=== PATIENT | female | born 1985 | race Caucasian/White ===

== ENCOUNTER → 2017-02-09 | Outpatient (CLI) | payer MEDICAID ==
[2017-02-09 10:58] LABS: COLLECTION METHOD CLEAN CATCH
[2017-02-09 11:01] LABS: BASO # 0.1 (0.0-0.2); BASO % 0.8 % (0.0-2.0); EOS # 0.5 (0.0-0.7); EOS % 5.8 % (0-4.0); GRAN # 5.1 (1.4-6.5); GRAN % 57.1 % (42.2-75.2); LYMPH # 2.7 (1.2-3.4); LYMPH % 30.3 % (20.0-51.0); MEAN CELL VOLUME 97 fl (80.0-100.0); MEAN CORPUSCULAR HGB CONC 33 g/dl (33.0-37.0); MONO # 0.5 (0.1-0.6); MONO % 5.3 % (1.7-9.3); PLATELET COUNT 270 K/mm3 (130-400); RED BLOOD COUNT 3.67 M/mm3 (4.10-5.30); WHITE BLOOD COUNT 8.9 K/mm3 (4.8-10.8)
[2017-02-09 11:03] LABS: HEMATOCRIT 35.4 % (37.0-47.0); HEMOGLOBIN 11.6 g/dl (12.5-16.0); MEAN CORPUSCULAR HEMOGLOBIN 32 pg (27.0-31.0)
[2017-02-09 11:05] LABS: MUCOUS Present /lpf; PH 7 (5-8); SQUAMOUS EPITHELIAL 0-2 /hpf; URINE APPEARANCE Clear; URINE BACTERIA None Seen /hpf; URINE BILIRUBIN Negative (NEGATIVE); URINE BLOOD Negative (NEGATIVE); URINE COLOR Yellow; URINE GLUCOSE Negative (NEGATIVE); URINE KETONE Negative (NEGATIVE); URINE LEUKOCYTE ESTERASE Negative (NEGATIVE); URINE PROTEIN(semi-quant) Negative (NEGATIVE); URINE RBC None Seen /hpf; URINE UROBILINOGEN Negative (NEGATIVE); URINE WBC 0-2 /hpf
[2017-02-09 11:17] LABS: ADJUSTED CALCIUM 9.2 mg/dL (8.4-10.2); ALANINE AMINOTRANSFERASE 74 U/L (9-52); ALBUMIN 5.4 gm/dL (3.5-5.0); ALKALINE PHOSPHATASE 50 U/L (50-136); ANION GAP 10 mmol/L (7-16); BILIRUBIN,TOTAL 0.4 mg/dL (0.0-1.0); BLOOD UREA NITROGEN 13 mg/dL (7-17); CALCIUM 10.3 mg/dL (8.4-10.2); CARBON DIOXIDE 29 mmol/L (22-30); CHLORIDE 102 mmol/L (98-107); CREATININE, serum 1.09 mg/dL (0.52-1.25); GLUCOSE 92 mg/dL (74-106); HDL CHOLESTEROL 71 mg/dL; POTASSIUM 4.2 mmol/L (3.4-5.0); SODIUM 141 mmol/L (137-145); TOTAL PROTEIN 8.9 gm/dL (6.4-8.2); TRIGLYCERIDE 235 mg/dL
[2017-02-09 11:23] LABS: CHOLESTEROL 369 mg/dL (120-200); CHOLESTEROL RISK RATIO 5.1; LDL CHOLESTEROL 251 mg/dL
== END ==
LOC: COL.LAB 09:47
PROVIDERS: Registered Nurse
DX: Z13.228 Encounter for screening for other metabolic disorders (principal); R20.9 Unspecified disturbances of skin sensation

== ENCOUNTER → 2017-03-02 | Outpatient (CLI) | payer MEDICAID ==
[2017-03-02 15:22] LABS: ALBUMIN 5.3 gm/dL (3.5-5.0); BILIRUBIN,TOTAL 0.5 mg/dL (0.0-1.0); CALCIUM 10.4 mg/dL (8.4-10.2); CREATININE, serum 0.86 mg/dL (0.52-1.25); TOTAL PROTEIN 8.8 gm/dL (6.4-8.2)
== END ==
LOC: COL.PUL 09:44
PROVIDERS: Registered Nurse
DX: R07.9 Chest pain, unspecified (principal); N92.6 Irregular menstruation, unspecified; R74.8 Abnormal levels of other serum enzymes

== ENCOUNTER → 2017-03-22 | Outpatient (CLI) | payer MEDICAID ==
[2017-03-22 13:47] LABS: AMYLASE 88 U/L (30-110); CHOLESTEROL 153 mg/dL (120-200); CHOLESTEROL RISK RATIO 2.7; HDL CHOLESTEROL 56 mg/dL; LDL CHOLESTEROL 79 mg/dL; LIPASE 142 U/L (23-300); TRIGLYCERIDE 88 mg/dL
[2017-03-22 14:03] LABS: TROPONIN-I < 0.012 ng/mL (0.000-0.034)
== END ==
LOC: COL.LAB 12:22
PROVIDERS: Internal Medicine Interventional Cardiology
DX: R07.89 Other chest pain (principal)

== ENCOUNTER → 2017-04-06 | Outpatient (CLI) | payer MEDICAID ==
[~2017-04-06] VITALS: Ht 162.6 cm; Wt 118.0 kg
[~2017-04-06] MED LIST: COLACE 100100 MG/CAP PO; LEVOXYL0.125 MG PO; LIPITOR20 MG PO; VITAMIN D 50,1.25 MG PO
[2017-04-06 10:45] VITALS: BP 118/76; PULSE 66
[2017-04-06 12:00] VITALS: BP 110/60; PULSE 66
[2017-04-06 12:05] VITALS: BP 105/56; PULSE 103
[2017-04-06 12:07] VITALS: BP 106/60; PULSE 93
== END ==
LOC: COL.CARD 10:22
DX: R07.89 Other chest pain (principal)
CPT/HCPCS: A9502; J2785

== ENCOUNTER → 2017-11-23 | Outpatient (CLI) | payer MEDICAID ==
[~2017-11-23] VITALS: Ht 162.6 cm; Wt 132.9 kg
[~2017-11-23] MED LIST changes: +ASPIRIN E.C. 8181 MG PO; +CELEBREX 200MG200 MG PO; +WOMEN'S DAILY1 TAB PO
[2017-11-23 11:46] VITALS: BP 116/60; PULSE 60
== END ==
LOC: LIGHT 09:53
DX: E03.9 Hypothyroidism, unspecified (principal); E78.5 Hyperlipidemia, unspecified; R73.01 Impaired fasting glucose; E66.01 Morbid (severe) obesity due to excess calories; Z68.42 Body mass index [BMI] 45.0-49.9, adult; Z71.3 Dietary counseling and surveillance
CPT/HCPCS: G0463

== ENCOUNTER → 2017-12-04 | Outpatient (CLI) | payer MEDICAID ==
[~2017-12-04] VITALS: Ht 162.6 cm; Wt 133.1 kg
[2017-12-04 11:16] VITALS: BP 130/76; PULSE 60
== END ==
LOC: LIGHT 10:01
DX: E78.5 Hyperlipidemia, unspecified (principal); R73.01 Impaired fasting glucose; E03.9 Hypothyroidism, unspecified; E66.01 Morbid (severe) obesity due to excess calories; Z68.42 Body mass index [BMI] 45.0-49.9, adult; Z71.3 Dietary counseling and surveillance

== ENCOUNTER → 2017-12-18 | Outpatient (CLI) | payer MEDICAID | LOC: LIGHT 12:54 | DX: E78.5 Hyperlipidemia, unspecified (principal); R73.01 Impaired fasting glucose; E03.9 Hypothyroidism, unspecified; E66.01 Morbid (severe) obesity due to excess calories; Z68.42 Body mass index [BMI] 45.0-49.9, adult; Z71.3 Dietary counseling and surveillance ==

== ENCOUNTER → 2017-12-28 | Outpatient (CLI) | payer MEDICAID ==
[~2017-12-28] VITALS: Ht 162.6 cm; Wt 130.9 kg
[2017-12-28 10:58] VITALS: BP 116/80; PULSE 72
== END ==
LOC: LIGHT 10:28
DX: E78.5 Hyperlipidemia, unspecified (principal); R73.01 Impaired fasting glucose; E03.9 Hypothyroidism, unspecified; E66.01 Morbid (severe) obesity due to excess calories; Z68.42 Body mass index [BMI] 45.0-49.9, adult; Z71.3 Dietary counseling and surveillance
CPT/HCPCS: G0463

== ENCOUNTER → 2018-02-01 | Outpatient (CLI) | payer MEDICAID ==
[~2018-02-01] VITALS: Ht 162.6 cm; Wt 130.6 kg
[2018-02-01 11:02] VITALS: BP 110/72; PULSE 68
== END ==
LOC: LIGHT 10:40
DX: E78.5 Hyperlipidemia, unspecified (principal); R73.01 Impaired fasting glucose; E03.9 Hypothyroidism, unspecified; E66.01 Morbid (severe) obesity due to excess calories; Z68.42 Body mass index [BMI] 45.0-49.9, adult; Z71.3 Dietary counseling and surveillance
CPT/HCPCS: G0463